=== PATIENT | female | born 1990 | race Caucasian/White ===

== ENCOUNTER 2019-05-18 10:08 | Emergency (ER) | payer BC, SELFPAY ==
[2019-05-18 10:14] VITALS: BP 123/69; PULSE 98; RESP 18; TEMP 36.2; O2SAT 99
--- NOTE | 2019-05-18 10:36 | ED.URI ---
HPI - URI/Sore Throat General Chief Complaint: Upper Respiratory Infection Stated Complaint: FEVER/DIARRHEA/VOMITING/CHILLS/SWEATS/COUGH Time Seen by Provider: 05/18/19 10:26 Source: patient Mode of arrival: ambulatory Limitations: no limitations History of Present Illness HPI Narrative: 28-year-old female presents for evaluation of symptoms that developed Wednesday, 3 days ago. She is reporting a fever max 101.7, nausea, vomiting, diarrhea, chills, body aches, nasal congestion, productive and dry cough, sore throat, ear pressure. She denies any nausea, vomiting, diarrhea today. Staying hydrated with water and Gatorade, urinating at least 3-4 times a day. She has used Tylenol, NyQuil, Sudafed for her symptoms. Exposed to boyfriend with similar symptoms last week. Denies any wheezing, shortness of breath, chest pain, confusion, weakness, rash, abdominal pain, urinary symptoms. Did not get flu shot this season. Denies smoking or vaping. Related Data Home Medications Medication Instructions Recorded Confirmed Control Pills 05/18/19 acetaminophen [Tylenol] 325 mg PO ONCE PRN 05/18/19 05/18/19 Allergies Allergy/AdvReac Type Severity Reaction Status Date / Time No Known Allergies Allergy Verified 05/18/19 10:21 Review of Systems Review of Systems: Narrative: CONSTITUTIONAL: Reports fever, chills, sweats. EYES: Denies visual changes, redness, or discharge. ENT: Reports rhinorrhea, congestion, sore throat, otalgia. CARDIOVASCULAR: Denies chest pain, palpitations, or edema. RESPIRATORY: Denies dyspnea. Reports dry and productive cough GASTROINTESTINAL: Denies abdominal pain. reports nausea, vomiting, diarrhea. GENITOURINARY: Denies dysuria, hematuria, urinary frequency, malordous urine SKIN: Denies rash or itching. MUSCULOSKELETAL: Denies back pain, swelling. Reports myalgia, joint pain NEUROLOGIC: Denies numbness, weakness. Reports headache PSYCHIATRIC: Denies anxiety or depression. All systems reviewed & are unremarkable except as noted in HPI and below PMFSH Comments At the time of my signature, I agree with nursing past medical, surgical, social and family history. There is no relevant family history pertinent to the presenting complaint. Exam Narrative: Exam Narrative: GENERAL: No distress, well appearing, well nourished, alert and calm HEAD: Normocephalic, atraumatic. No sinus tenderness noted EYES: Pupils equal, round. Extraocular movements intact. Conjunctivae without redness or drainage. EARS: Tympanic membranes without erythema. TM landmarks intact with good light reflex. Ear canals without discharge. NOSE: Nares patent. Nasal turbinates inflamed. No nasal discharge MOUTH: Mucous membranes moist. No lesions. No cyanosis. Dentition grossly normal. THROAT: Oropharynx with erythema.no exudates or lesions. Tonsils not enlarged. NECK: Supple. No lymphadenopathy. RESPIRATORY: Airway patent. Chest clear to auscultation bilaterally. Breath sounds equal bilaterally. No retractions. CARDIOVASCULAR: Regular rate and rhythm. No murmurs, rubs, gallops, or clicks. Capillary refill <2 seconds. GASTROINTESTINAL: Soft, nontender, non-distended. Bowel sounds normoactive. No masses. No organomegaly. No CVA tenderness SKIN: Color normal. Warm and dry. No rashes. NEURO: Alert. Motor intact in all extremities. Muscle tone normal. Course Course Emergency Course: Obtained influenza swab on arrival Vital Signs Vital signs: Vital Signs Temperature 97.2 F L 05/18/19 10:14 Pulse Rate 98 05/18/19 10:14 Respiratory Rate 18 05/18/19 10:14 Blood Pressure 123/69 05/18/19 10:14 Pulse Oximetry 99 05/18/19 10:14 Temperature 97.2 F L 05/18/19 10:14 Pulse Rate 98 05/18/19 10:14 Respiratory Rate 18 05/18/19 10:14 Blood Pressure 123/69 05/18/19 10:14 Pulse Oximetry 99 05/18/19 10:14 Reviewed MDM - URI/Sore Throat MDM Narrative Medical decision making narrative: Patient is in no acute distress
== END 2019-05-18 10:53 | disposition home or self-care (01) ==
PROVIDERS: Emergency Provider Nurse Practitioner; PCP Emergency Medicine
DX: J10.1 Influenza due to other identified influenza virus with other respiratory manifestations (principal)
CPT/HCPCS: 87804; 99213; G0463